=== PATIENT | male | born 1995 | race Caucasian/White ===

== ENCOUNTER 2020-10-16 16:17 | Emergency (ER) | payer OTHER, SELFPAY ==
[2020-10-16 16:18] VITALS: BP 158/83; PULSE 77; RESP 18; TEMP 36.3; O2SAT 99; BMI 31.3
--- NOTE | 2020-10-16 17:34 | NURSING ---
FACESHEET FAXED TO [facility]
--- NOTE | 2020-10-16 19:01 | ED.DCSUM_ITS ---
- ER Visit Summary Date of Service: 10/16/20 Chief Complaint: Depression History of Present Illness: The patient is a 25 M presenting with depression. Patient states this has been ongoing for several months. He states he is under a lot of stress. He has been sleeping more occasionally and not sleeping so metimes. He has been eating more sometimes and eating less sometimes. He denies suicidal or homicidal ideation. He is not currently on any medications. He states he rarely drinks alcohol and denies drug use. Physical Examination: Vitals are stable. Patient is afebrile. Alert no acute distress. HEENT exam is unremarkable. Neck is supple. Lungs are clear and equal bilaterally. Heart is regular rate and rhythm. Abdomen is soft nontender nondistended. Extremities are unremarkable. Skin is warm and dry. No focal neurologic deficit. Depressed affect, denies suicidal ideation Remainder of exam is unremarkable. Emergency Department Course and Treatment: Counseling center discussed with patient at length. They will follow-up with him as an outpatient. They do not feel the patient requires inpatient hospitalization and he is safe to be discharged. Patient left the ED prior to discharge instructions. Disposition: Discharge Impression: Depression This note was generated with [employer] dictation software. It may contain incorrect words, spelling, and punctuation that were not noted in review of the chart prior to signing ED Disposition - Plan for ED Patient: Referrals: Care Physician,No Primary [Primary Care Provider] -
--- NOTE | 2020-10-16 19:04 | ED.RN ---
pt left department after talking to the counseling center, confirmed with counseling center that pt would be ok to go home. pt left a red sweatshirt in his room. attempted to call pt, was unable to leave a message.
== END 2020-10-16 19:29 | disposition home or self-care (01) ==
LOC: ED 17:24
PROVIDERS: Emergency Provider Emergency Medicine
DX: F32.9 Major depressive disorder, single episode, unspecified (principal); F17.200 Nicotine dependence, unspecified, uncomplicated
CPT/HCPCS: 99282